=== PATIENT | male | born 1950 | race Caucasian/White ===

== ENCOUNTER 2023-11-15 14:55 | Emergency (ER) | payer OTHER ==
[~2023-11-15] VITALS: Ht 188 cm; Wt 159.0 kg
[~2023-11-15 14:55] MED LIST: CARV6.2551; FOSI20TA; METF-370; OMEG120017; SIMV40TA18; SPIR25TA; WARF5TAB; prednisone
[2023-11-15 15:58] LABS: Basophils # (auto) 0.1 10 ^3/uL (0-0.2); Basophils % (auto) 0.9 % (0.0-2.0); Eosinophils # (auto) 0.1 10 ^3/uL (0-0.8); Eosinophils % (auto) 2.2 % (0.0-7.0); Hemoglobin 14.6 g/dL (13.5-17.5); Lymphocytes # (auto) 0.9 10 ^3/uL (0.4-5.4); Lymphocytes % (auto) 13.1 % (10.0-50.0); Mean Corpuscular Hemoglobin 28.4 pg (28.0-32.0); Mean Corpuscular Hgb Conc. 33.3 g/dL (32.0-36.0); Mean Corpuscular Volume 85.4 fL (80.0-100.0); Monocytes # (auto) 0.6 10 ^3/uL (0-1.3); Monocytes % (auto) 9.2 % (0.0-12.0); Neutrophils # (auto) 5.2 10 ^3/uL (1.6-8.6); Neutrophils % (auto) 74.6 % (37.0-80.0); Nucleated Red Blood Cells % 0.1 %; Red Blood Cells 5.15 10^6/uL (4.5-5.90); Red Cell Distribution Width 16.2 % (11.8-14.3); White Blood Cell 6.9 10^3/uL (4.4-10.8)
[2023-11-15 16:17] LABS: Alanine Aminotransferase 20 U/L (7-40); Albumin 3.9 g/dL (3.2-4.8); Alkaline Phosphatase 137 U/L (46-116); Anion Gap 9 (5-15); Aspartate Aminotransferase 28 U/L (13-40); BUN/Creatinine Ratio 13.3 (10.0-20.0); Bilirubin, Total 4.5 mg/dL (0.2-1.0); Blood Urea Nitrogen 13 mg/dL (9-23); Calcium 9.3 mg/dL (8.5-10.1); Carbon Dioxide 29 mmol/L (20-30); Chloride 103 mmol/L (98-107); Glucose 119 mg/dL (74-106); Sodium 141 mmol/L (136-145)
[2023-11-15] MEDS: FUROSEMIDE 40 MG/4 ML VIAL IV ONE ×2 (16:45→19:30)
[2023-11-15 17:50] VITALS: PULSE 88; RESP 20; O2SAT 96
[2023-11-15] MEDS ORDERED: FURO1TAB31 PO (19:03)
[2023-11-15 19:30] VITALS: BP 121/79; PULSE 89; RESP 22; TEMP 98.4; O2SAT 95
== END 2023-11-15 20:25 | disposition home or self-care (01) ==
LOC: ER 14:55 → EDBD 14:55 → ER 20:00
DX: I11.0 Hypertensive heart disease with heart failure (principal); I50.9 Heart failure, unspecified; E11.9 Type 2 diabetes mellitus without complications; E78.5 Hyperlipidemia, unspecified; I25.10 Atherosclerotic heart disease of native coronary artery without angina pectoris; Z98.890 Other specified postprocedural states
CPT/HCPCS: 36415; 71045; 80053; 83880; 84484; 85025; 93005; 96374; 99285; J1940

== ENCOUNTER 2025-05-29 00:39 | Emergency (ER) | payer OTHER ==
[~2025-05-29] VITALS: Ht 195.6 cm; Wt 131.5 kg
[~2025-05-29 00:39] MED LIST changes: +FURO1TAB31 PO
--- NOTE | 2025-05-29 01:14 | ED.PDOC ---
History of Present Illness HPI Comments 75 y/o obese M is BIBA from private residence for c/c of generalized weakness, wtih associated poor appetite. Per EMS report, significant history of AFib, CAD, CHF - on Lasix, DM II, HLD, HTN, and PTCA. Patient lives alone. He endorses 6x month history of intermittent weakness, with poor liquid and food intake for over the past 2-3x days. Recent hospital admission at [facility] for same c/c generalized weakness with no significant findings 1x month ago. Denial of any current chest pain, palpitations, dizziness, lightheadedness, fever, chills, or further associated symptoms. 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, Medications, Allergies Allergies: Coded Allergies: NO KNOWN ALLERGIES (Unverified , 11/15/23) Home Meds Active Scripts Furosemide (Lasix) 40 Mg Tab, 40 MG PO BID, #60 TAB Prov:SHILO FREEMAN MD 11/15/23 Reported Medications Fish Oil (Fish Oil) 1,200 Mg Cap 04/11/12 Spironolactone (Aldactone) 25 Mg Tab 04/11/12 Simvastatin (Simvastatin) 40 Mg Tab 04/11/12 Warfarin Sodium (Coumadin) 5 Mg Tab 04/11/12 Warfarin Sodium (Coumadin) 5 Mg Tab 04/11/12 [prednisone] No Conflict Check, 10 04/11/12 Fosinopril Sodium (Fosinopril Sodium) 20 Mg Tab, daily 04/11/12 Carvedilol (Carvedilol) 6.25 Mg Tab, bid 04/11/12 Metformin Hydrochloride (Metformin Hcl) 500 Mg Tab, bid 04/11/12 Information Source: Patient, Emergency Med Personnel Mode of Arrival: EMS Severity: Moderate Timing: Months Duration: Intermittent Prehospital treatment: 12 Lead EKG, Accucheck, 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 Past Medical History PAST MEDICAL HISTORY: AFIB, CAD, CHF (on Lasix ), DM (type II ), High Lipids, HTN Surgical History: PTCA Family History Family History: No family hx of Heart marky, No family hx of HTN Social History Smoker: Non-Smoker Alcohol: Rarely Drugs: Denies Drug Use Lives In: Home All Other Systems: Reviewed and Negative (Comprehensive systems review obtained and negative except for what is stated in the HPI.) Physical Exam General Appearance: No Apparent Distress, Obese, Other (chronically ill- appearing ) HEENT: Normal ENT Inspection, Pharynx Normal, TMs Normal Neck: Full Range of Motion, Non-Tender, Normal, Normal Inspection Respiratory: Chest Non-Tender, Lungs Clear, No Accessory Muscle Use, No Respiratory Distress, Normal Breath Sounds Cardiovascular: No Edema, No JVD, No Murmur, No Gallop, Normal Peripheral Pulses, Regular Rate/Rhythm Breast Exam: Deferred Gastrointestinal: No Organomegaly, Non Tender, No Pulsatile Mass, Normal Bowel Sounds, Soft Genitalia: Deferred Pelvic: Deferred Rectal: Deferred Extremities: Leg edema (bilateral lower extremities ), No calf tenderness, Normal capillary refill, Normal range of motion, Non-tender Musculoskeletal : Apperance: Normal Neurologic: Alert, 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 Was a procedure done?: No Differential Dx Considerations may include: Acute CHF exacerbation, ME, PE, ACS, URI, PNA, sepsis, viral syndrome, arrhythmia, fluid retention, noncompliance, among others X-Ray, Labs, Meds, VS Vital Signs Date Time Temp Pulse Resp B/P (MAP) Pulse Ox O2 Delivery O2 Flow Rate FiO2 05/29/25 00:47 98.1 110 18 136/80 100 98.1 05/29/25 00:40 102 Lab Test 05/29/25 02:06 05/29/25 01:09 Range/Units Troponin I High Sensitivity 6 6 </=54 ng/L White Blood Count 7.7 4.4-10.8 10^3/uL Red Blood Count 4.18 L 4.5-5.90 10^6/uL Hemoglobin 12.8 L 13.5-17.5 g/dL Hematocrit 36.6 L 41.0-53.0 % Mean Corpuscular Volume 87.6 80.0-100.0 fL Mean Corpuscular Hemoglobin 30.6 28.0-32.0 pg Mean Corpuscular Hemoglobin Concent 35.0 32.0-36.0 g/dL Red Cell Distribution Width 17.5 H 11.8-14.3 % Platelet Count 306 140-450 10^3/uL Mean Platelet Volume 6.7 L 6.9-10.8 fL Neutrophils (%) (Auto) 72.0 37.0-80.0 % Lymphocytes (%) (Auto) 15.1 10.0-50.0 % Monocytes (%) (Auto) 11.1 0.0-12.0 % Eosinophils (%) (Auto) 0.9 0.0-7.0 % Basophils (%) (Auto) 0.9 0.0-2.0 % Neutrophils # (Auto) 5.5 1.6-8.6 10 ^3/uL Lymphocytes # (Auto) 1.2 0.4-5.4 10 ^3/uL Monocytes # (Auto) 0.9 0-1.3 10 ^3/uL Eosinophils # (Auto) 0.1 0-0.8 10 ^3/uL Basophils # (Auto) 0.1 0-0.2 10 ^3/uL Nucleated Red Blood Cells 0.1 % Sodium Level 132 L 136-145 mmol/L Potassium Level 4.4 3.5-5.1 mmol/L Chloride Level 97 L 98-107 mmol/L Carbon Dioxide Level 24 20-31 mmol/L Anion Gap 11 5-15 Blood Urea Nitrogen 24 H 9-23 mg/dL Creatinine 1.17 0.700-1.30 mg/dL Glomerular Filtration Rate Calc 65 >90 mL/min BUN/Creatinine Ratio 20.5 H 10.0-20.0 Serum Glucose 111 H 74-106 mg/dL Calcium Level 9.2 8.7-10.4 mg/dL Total Bilirubin 2.7 H 0.2-1.0 mg/dL Aspartate Amino Transferase (AST) 22 13-40 U/L Alanine Aminotransferase (ALT) 16 7-40 U/L Alkaline Phosphatase 101 46-116 U/L B-Type Natriuretic Peptide 53.53 0-100 pg/mL Total Protein 6.4 5.7-8.2 g/dL Albumin 3.8 3.2-4.8 g/dL Time of 1ST Reevaluation: 01:15 Reevaluation 1ST: Unchanged Patient Education/Counseling: Diagnosis, Treatment Family Education/Counseling: No Family Present SEPSIS Sepsis Screen Date sepsis recognized/suspect: May 29, 2025 Time Sepsis recognized/suspect: 50 Recent Procedure: No On Antibiotic Therapy: No Respiratory Rate >20: No Heart Rate >90: Yes Temp<36 C (96.8 F) or >38.3 C: No SBP <90 or MAP <65 mmHG: No New Acute Mental Status Change: No Is the patient on CPAP, BIPAP,: No Physician Orders Urinalysis (05/29/25 00:51) Chest Portable (05/29/25 00:51) Electrocardigram (05/29/25 00:52) Lactic Acid W/ Reflex Order (05/29/25 06:01) Blood Culture (05/29/25 06:01) NS (05/29/25 06:15) Cefepime 2gm Extended Infusion (05/29/25 06:15) Vancomycin (05/29/25 06:15) Azithromycin 500mg/ 250ml (Zithromax 50 (05/29/25 06:15) Vital Signs Date Time Temp Pulse Resp B/P (MAP) Pulse Ox O2 Delivery O2 Flow Rate FiO2 05/29/25 00:47 98.1 110 18 136/80 100 98.1 05/29/25 00:40 102 Laboratory Tests Test 05/29/25 01:09 White Blood Count 7.7 10^3/uL (4.4-10.8) Departure 1 Departure Time of Disposition: 06:03 (Patient has a pneumonia and worsening weakness. We will cover the patient with antibiotics admit patient for further workup) Impression: Primary Impression: Pneumonia Qualified Codes: J18.9 - Pneumonia, unspecified organism Additional Impressions: Generalized weakness Near syncope Disposition: ADMITTED INPATIENT Admit to: Med Surg Condition: Serious Critical Care Note Critical Care Time?: No Stability Stability form required: No Heart Score Heart Score: Heart Score Response (Comments) Value History N/A 0 EKG N/A 0 Age N/A 0 Risk Factors N/A 0 Troponin N/A 0 Total 0 I personally scribed for AKIRA HODGE MD ([email or web address]) on 05/29/25 at 01:14. Electronically submitted by Petey Kam [email or web address]). AKIRA HODGE MD May 29, 2025 01:14
[2025-05-29 01:53] LABS: Hematocrit 36.6 % (41.0-53.0); Hemoglobin 12.8 g/dL (13.5-17.5); Mean Corpuscular Hemoglobin 30.6 pg (28.0-32.0); Mean Corpuscular Volume 87.6 fL (80.0-100.0); Nucleated Red Blood Cells % 0.1 %
[2025-05-29 02:14] LABS: Alanine Aminotransferase 16 U/L (7-40); Albumin 3.8 g/dL (3.2-4.8); Alkaline Phosphatase 101 U/L (46-116); Anion Gap 11 (5-15); BUN/Creatinine Ratio 20.5 (10.0-20.0); Calcium 9.2 mg/dL (8.7-10.4); Carbon Dioxide 24 mmol/L (20-31); Potassium 4.4 mmol/L (3.5-5.1); Total Protein 6.4 g/dL (5.7-8.2)
[2025-05-29 02:22] LABS: Bilirubin, Total 2.7 mg/dL (0.2-1.0); Blood Urea Nitrogen 24 mg/dL (9-23); Chloride 97 mmol/L (98-107); Glucose 111 mg/dL (74-106); Sodium 132 mmol/L (136-145)
--- NOTE | 2025-05-29 05:39 | DVH ---
CHEST RADIOGRAPH Indication: weakness Technique: Single frontal view of the chest was obtained Comparison: XY CHEST PORTABLE on DOS: 11/15/23 FINDINGS: Lines and Tubes: None Lungs: Patchy left lower lobe consolidation. Pleura: Left pleural effusion. No pneumothorax. Cardiomediastinal contours: Cardiomegaly. Bones: No acute osseous abnormality. IMPRESSION: 1. Patchy left lower lobe consolidation. 2. Small left pleural effusion.
--- NOTE | 2025-05-29 06:30 | ECG ---
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
[2025-05-29 07:23] LABS: Lactic Acid w/Reflex 2.4 mmol/L (0.4-2.0)
[2025-05-29] MEDS: SODIUM CHLORIDE 0.9% 1,000 ML IV ONE (07:49)
[2025-05-29] MEDS: VANCOMYCIN 1GM/250ML KIT 250 ML IV ONE (07:49)
[2025-05-29] MEDS: AZITHROMYCIN 500MG/ 250ML 250 ML IV ONE (08:54)
[2025-05-29] MEDS: CEFEPIME 2GM/50ML NS 50 ML IV ONE (10:21)
[2025-05-29] MEDS ORDERED: AUG875T PO (12:19)
[2025-05-29] MEDS ORDERED: DOXY-346 PO (12:20)
--- NOTE | 2025-05-29 13:27 | DVHDS2 ---
Discharge Summary Date of Admission Date of Discharge: May 29, 2025 Labs/Diagnostic Data: Laboratory Results Test 05/29/25 08:33 05/29/25 02:06 05/29/25 01:09 Lactic Acid Level 1.8 mmol/L (0.4-2.0) Troponin I High Sensitivity 6 ng/L (</=54) White Blood Count 7.7 10^3/uL (4.4-10.8) Red Blood Count 4.18 10^6/uL (4.5-5.90) Hemoglobin 12.8 g/dL (13.5-17.5) Hematocrit 36.6 % (41.0-53.0) Mean Corpuscular Volume 87.6 fL (80.0-100.0) Mean Corpuscular Hemoglobin 30.6 pg (28.0-32.0) Mean Corpuscular Hemoglobin Concent 35.0 g/dL (32.0-36.0) Red Cell Distribution Width 17.5 % (11.8-14.3) Platelet Count 306 10^3/uL (140-450) Mean Platelet Volume 6.7 fL (6.9-10.8) Neutrophils (%) (Auto) 72.0 % (37.0-80.0) Lymphocytes (%) (Auto) 15.1 % (10.0-50.0) Monocytes (%) (Auto) 11.1 % (0.0-12.0) Eosinophils (%) (Auto) 0.9 % (0.0-7.0) Basophils (%) (Auto) 0.9 % (0.0-2.0) Neutrophils # (Auto) 5.5 10 ^3/uL (1.6-8.6) Lymphocytes # (Auto) 1.2 10 ^3/uL (0.4-5.4) Monocytes # (Auto) 0.9 10 ^3/uL (0-1.3) Eosinophils # (Auto) 0.1 10 ^3/uL (0-0.8) Basophils # (Auto) 0.1 10 ^3/uL (0-0.2) Nucleated Red Blood Cells 0.1 % Sodium Level 132 mmol/L (136-145) Potassium Level 4.4 mmol/L (3.5-5.1) Chloride Level 97 mmol/L (98-107) Carbon Dioxide Level 24 mmol/L (20-31) Anion Gap 11 (5-15) Blood Urea Nitrogen 24 mg/dL (9-23) Creatinine 1.17 mg/dL (0.700-1.30) Glomerular Filtration Rate Calc 65 mL/min (>90) BUN/Creatinine Ratio 20.5 (10.0-20.0) Serum Glucose 111 mg/dL (74-106) Calcium Level 9.2 mg/dL (8.7-10.4) Total Bilirubin 2.7 mg/dL (0.2-1.0) Aspartate Amino Transferase (AST) 22 U/L (13-40) Alanine Aminotransferase (ALT) 16 U/L (7-40) Alkaline Phosphatase 101 U/L (46-116) B-Type Natriuretic Peptide 53.53 pg/mL (0-100) Total Protein 6.4 g/dL (5.7-8.2) Albumin 3.8 g/dL (3.2-4.8) Other Laboratory Tests 05/29/25 01:09 Brief Hx & Hospital Course: Patient is a 75-year-old male with past medical history of atrial fibrillation, CAD, CHF hypertension who presented with complaints of generalized weakness with decreased appetite for the past 2 to 3 days. Patient was recently hospitalized for similar complaints at [place] ago. Patient presented today for further evaluation. Vitals on arrival were notable for tachycardia to peak of 110 consistent with atrial fibrillation. Heart rate noted to improve with fluids. No fever was noted. Blood pressure was within normal limits. CBC did not reveal any leukocytosis. Was notable for hemoglobin of 12.8. BMP was done which showed some hyponatremia of 132, hypochloremia of 97 and BUN/creatinine of 24/1.17. Lactic acid was elevated 2.4 and downtrended to 1.8. Total bilirubin was 2.7. Troponin was nonelevated x 2. Patient underwent chest x-ray which showed a patchy left lower lobe consolidation with small left pleural effusion. Patient was treated with vancomycin and cefepime and given a 1 L bolus. He was also given azithromycin. Curb 65 score was noted to be two and amenable for outpatient treatment for community-acquired pneumonia. Patient noted improvement in weakness. He was noted to ambulate prior to discharge. He was monitored for several hours. Overall, patient's diagnosis was consistent with pneumonia. These findings were discussed with the patient. Patient was discharged on Augmentin and doxycycline for 7 additional days. He is to follow- up with his PCP. Patient was given ER return precautions. [facility] case management arrange follow-up appointments. Patient discharged in stable condition. Condition at Discharge: Good Final Diagnosis/Problems List Community Acquired Pneumonia Secondary Diagnosis: Atrial Fibrillation Generalized Weakness Discharge Disposition: Home Discharge Instruct/Medications Diet: Cardiac 2g Na,low cholest Activity: No Restrictions, As Tolerated Follow Up/Referral: Follow up with PCP in 1 week. Medications: Augmentin and Doxycycline twice a day for 7 days. Continue taking home medications. Scheduled Amoxicillin & Pot Clavulanate (Augmentin Tablet), 875 MG PO BID Carvedilol (Carvedilol), bid, (Reported) Doxycycline (Monohydrate) (Doxycycline), 100 MG PO BID Fosinopril Sodium (Fosinopril Sodium), daily, (Reported) Furosemide (Lasix), 40 MG PO BID Metformin Hydrochloride (Metformin Hcl), bid, (Reported) Miscellaneous Medications Fish Oil (Fish Oil), (Reported) Simvastatin (Simvastatin), (Reported) Spironolactone (Aldactone), (Reported) Warfarin Sodium (Coumadin), (Reported) Warfarin Sodium (Coumadin), (Reported) [prednisone], 10, (Reported) Discharge Statement: "Patient was advised to return to the ER or call 911 if any headaches, dizziness, shortness of breath, chest pain, abdominal pain, bleeding, fevers, or worsening of medical condition. Patient was counseled about treatment plan, medications, possible side effects, patientverbalized understanding. All questions were answered to the best of my ability. This discharge took greater then 30 minutes in planning, reviewing documentation, counseling the patient, and discussing with other team members." ASSESSMENT ASSESSMENT Assessment Community Acquired Pneumonia LUIS EATON DO May 29, 2025 13:27
[2025-05-29 16:40] VITALS: BP 105/55; PULSE 78; RESP 16; TEMP 97.9; O2SAT 95
== END 2025-05-29 16:49 | disposition admitted as inpatient to this hospital (09) ==
LOC: EDBD 00:39 → ER 00:39
DX: J18.9 Pneumonia, unspecified organism (principal); R55 Syncope and collapse; R53.1 Weakness; I11.0 Hypertensive heart disease with heart failure; I50.9 Heart failure, unspecified; E78.5 Hyperlipidemia, unspecified; E11.9 Type 2 diabetes mellitus without complications; E66.9 Obesity, unspecified; I48.91 Unspecified atrial fibrillation; F10.90 Alcohol use, unspecified, uncomplicated; Z79.899 Other long term (current) drug therapy; Z79.84 Long term (current) use of oral hypoglycemic drugs; I25.10 Atherosclerotic heart disease of native coronary artery without angina pectoris; Z68.34 Body mass index [BMI] 34.0-34.9, adult; Y90.9 Presence of alcohol in blood, level not specified
CPT/HCPCS: 36415; 71045; 80053; 83605; 83880; 84484; 85025; 87040; 93005; 96365; 96366; 96367; 96368; 99285; J0456; J0692; J3373; J7030